=== PATIENT | male | born 1985 | race Caucasian/White ===

== ENCOUNTER → 2018-03-12 07:05 | Outpatient (CLI) | payer OTHER, SELFPAY ==
--- NOTE | 2018-03-12 | DI.MRI.S_ITS ---
PROCEDURE: MR BRAIN (IAC) WWO CON INDICATIONS: VERTIGO, HEARING LOSS, EAR FULLNESS TECHNIQUE: Noncontrast sagittal T1 spin echo, axial FLAIR, axial gradient echo, axial diffusion and ADC through the brain. Axial thin-slice 3D CISS, coronal TruFISP, axial T1 spin echo with fat saturation through the internal auditory canals. After the administration of contrast, thin slice axial and coronal T1 spin echo with fat saturation through the internal auditory canals, and axial T1 spin echo with fat saturation through the brain. COMPARISON: None. FINDINGS: Image quality: Excellent. Cerebellopontine angles: No cerebellopontine angle masses. Inner ear structures appear normally formed. No suspicious enhancement in the internal auditory canal or along the course of the 7th cranial nerve. CSF spaces: Ventricles are normal in size and shape. No extra-axial fluid collections. Basal cisterns are patent. Brain: No intracranial bleeds or mass effects. There are sub-5 mm a few bilateral white matter signal changes for example image 14 series 6 with no definite associated enhancement. These are technically nonspecific. Rodríguez-white matter interface is intact. No abnormal intracranial enhancement. Diffusion weighted images demonstrate no acute ischemic insults. Brainstem appears normal. Normal intravascular flow voids are present. Skull and face: Calvarial marrow signal is normal. Orbits appear normal. Sinuses: Left maxillary sinus mucous retention cyst or polyp only partially visualized. IMPRESSION: No suspicious signal abnormality or enhancement within the IAC or cerebellopontine angles bilaterally. Few nonspecific sub-5 mm white matter signal changes as above. Technically, early demyelination is in the differential among other possibilities although no associated enhancement is seen. Recommend clinical correlation. Dictated by: Nish Lopez M.D. on 03/12/2018 at 8:30 Approved by: Nish Lopez M.D. on 03/12/2018 at 8:39
== END ==
PROVIDERS: Visit Provider Student in an Organized Health Care Education/Training Program
DX: R42 Dizziness and giddiness (principal); H91.90 Unspecified hearing loss, unspecified ear; H93.8X9 Other specified disorders of ear, unspecified ear
CPT/HCPCS: 70553; A9579